=== PATIENT | female | born 1930 | race Caucasian/White ===

== ENCOUNTER 2017-11-10 22:10 | Inpatient (IN) | payer OTHER ==
[~2017-11-10] VITALS: Ht 162.6 cm; Wt 63.5 kg
[~2017-11-10 22:10] MED LIST: ASA-EC81 MG PO; ASA81 MG; CATAPRES0.3 M1; COZAAR PO; Cordarone 200 MG TAB PO; FLUCONAZOLE100 MG PO; FUROSEMIDE40 MG PO; GABAPENTIN100 MG; HYDRALAZINE HC100 MG; HYDRALAZINE HCL50 MG PO; IOPHEN DM-100 MG/5 M PO; LASIX20 MG PO; LASIX40 MG; LEVAQUIN500 MG PO; LoPRESSOR 50MG TAB PO; METOPROLOL TART50 MG PO; NABUMETONE500 MG PO; NEURONTIN300 MG; NORVASC 10 MG TAB PO; NORVASC5 MG; PROPRANOLOL HCL40 MG; RESTORIL15 MG PO; SERTRALINE HCL25 MG; TESSALON PERLE100 M1 PO; TOPROL XL100 M1 PO; TOPROL XL50 M1 PO; VASOTEC 2.5MG TAB PO; VASOTEC 20MG TAB PO; VASOTEC2.5 MG PO; VASOTEC20 M1
[2017-11-10] MEDS ORDERED: AMIODARONE HCL200 MG (22:35)
[2017-11-10] MEDS ORDERED: DONEPEZIL HCL OD5 MG (22:35)
[2017-11-10] MEDS ORDERED: ZOLOFT25 MG (22:36)
[2017-11-10] MEDS ORDERED: COZAAR100 MG (22:36)
[2017-11-10] MEDS ORDERED: FERROUS SULFAT325 MG (22:36)
[2017-11-10] MEDS ORDERED: VITAMIN D31 ML (22:36)
[2017-11-10] MEDS ORDERED: HUMULIN 70100 UNIT/2 (22:37)
== END 2017-12-07 20:30 | disposition expired | DRG 871 ==
LOC: ER 22:10 → MEDJ 11-11 11:04 → SEC-K 11-11 11:04 → ICU-2 11-11 11:04 → ICU 11-14 02:08 → MEDJ 11-23 02:22 → MEDI 11-23 02:22 → MEDJ 12-07 20:30
PROC: 3E0F7GC Introduction of Other Therapeutic Substance into Respiratory Tract, Via Natural or Artificial Opening (ICD-10-PCS; principal; 2017-11-11)
PROC: 8E0ZXY6 Isolation (ICD-10-PCS; 2017-11-11)
PROC: B246ZZZ Ultrasonography of Right and Left Heart (ICD-10-PCS; 2017-11-12)
PROC: 4A12X4Z Monitoring of Cardiac Electrical Activity, External Approach (ICD-10-PCS; 2017-11-23)
PROC: 4A033R1 Measurement of Arterial Saturation, Peripheral, Percutaneous Approach (ICD-10-PCS; 2017-11-25)
PROC: BW24ZZZ Computerized Tomography (CT Scan) of Chest and Abdomen (ICD-10-PCS; 2017-11-26)
PROC: 06HN33Z Insertion of Infusion Device into Left Femoral Vein, Percutaneous Approach (ICD-10-PCS; 2017-11-27)
PROC: 30233N1 Transfusion of Nonautologous Red Blood Cells into Peripheral Vein, Percutaneous Approach (ICD-10-PCS; 2017-11-27)
PROC: 5A09557 Assistance with Respiratory Ventilation, Greater than 96 Consecutive Hours, Continuous Positive Airway Pressure (ICD-10-PCS; 2017-11-29)
PROC: B54CZZZ Ultrasonography of Left Lower Extremity Veins (ICD-10-PCS; 2017-12-03)
DX: A41.9 Sepsis, unspecified organism (principal); G92 Toxic encephalopathy; J96.01 Acute respiratory failure with hypoxia; J09.X1 Influenza due to identified novel influenza A virus with pneumonia; J18.8 Other pneumonia, unspecified organism; N17.8 Other acute kidney failure; I47.1 Supraventricular tachycardia; I16.1 Hypertensive emergency; B37.49 Other urogenital candidiasis; J44.1 Chronic obstructive pulmonary disease with (acute) exacerbation; J90 Pleural effusion, not elsewhere classified; J98.11 Atelectasis; C78.02 Secondary malignant neoplasm of left lung; C78.01 Secondary malignant neoplasm of right lung; R65.20 Severe sepsis without septic shock; I48.0 Paroxysmal atrial fibrillation; Z74.01 Bed confinement status; R63.0 Anorexia; E86.0 Dehydration; L89.152 Pressure ulcer of sacral region, stage 2; I10 Essential (primary) hypertension; I27.29 Other secondary pulmonary hypertension; K29.00 Acute gastritis without bleeding; B96.1 Klebsiella pneumoniae [K. pneumoniae] as the cause of diseases classified elsewhere; Z16.24 Resistance to multiple antibiotics; E11.65 Type 2 diabetes mellitus with hyperglycemia; Z66 Do not resuscitate; T46.0X5A Adverse effect of cardiac-stimulant glycosides and drugs of similar action, initial encounter; L89.611 Pressure ulcer of right heel, stage 1